=== PATIENT | male | born 1975 | race Hispanic/Latino ===

== ENCOUNTER 2023-08-20 07:53 | Outpatient (CLI) | payer OTHER | END 2023-08-20 07:54 | disposition home or self-care (01) | LOC: BICULT 07:53 | PROVIDERS: ATTEND Family Medicine | DX: R79.89 Other specified abnormal findings of blood chemistry (principal); K76.0 Fatty (change of) liver, not elsewhere classified | CPT/HCPCS: 76705 ==

== ENCOUNTER 2025-03-15 15:03 | Outpatient (CLI) | payer OTHER | END 2025-03-15 15:04 | disposition home or self-care (01) | LOC: ULT 15:03 | PROVIDERS: ATTEND Family Medicine | DX: R31.9 Hematuria, unspecified (principal); K76.0 Fatty (change of) liver, not elsewhere classified; R39.198 Other difficulties with micturition | CPT/HCPCS: 76770 ==